=== PATIENT | male | born 1965 | race Caucasian/White ===

== ENCOUNTER 2018-02-23 19:22 | Emergency (ER) | payer OTHER ==
[~2018-02-23] VITALS: Ht 177.8 cm; Wt 95.3 kg
[~2018-02-23 19:22] MED LIST: ASPIRIN CHEW81 MG PO; FLECAINIDE ACE100 MG PO; METOPROLOL SUCC50 MG PO; OMEPRAZOLE20 M1 PO; SERTRALINE HCL50 MG PO; ZANTAC150 MG PO
--- OUTSIDE RECORDS SUMMARY | 2018-02-23 19:25 | XMS REPORT | Summary of Care ---
Author Author VALENTINE BROWN M.D. Organization Unknown Address [facility] Phone Unavailable Care Team Providers Care Entertainment Usher Name Role Phone VALENTINE BROWN M.D. Unavailable Unavailable SHELBIE MARTINEZ DO Unavailable Unavailable Unavailable Unavailable Functional Status Name Dates Details Functional status health issues are not documented Status: Name Dates Details Cognitive status health issues are not documented Status: Problems Name Dates Details Left-sided tinnitus (388.30, H93.12) Status: Active Medications Name Dates Details Metoprolol Tartrate 50 MG Oral Tablet Active PriLOSEC 20 MG CPDR * Refills: 0 Active Propafenone HCl TABS * Refills: 0 Active Allergies and Adverse Reactions Name Dates Details Typhoid Vaccines (Allergy) Status: Active Past Medical History Name Dates Details History of gastritis (V12.79, Z87.19) Status: Resolved History of hypertension (V12.59, Z86.79) Status: Resolved History of migraine headaches (V12.49, Z86.69) Status: Resolved Procedures Procedure Dates Details [O] Basic Audiometry Screen Date: 11-Aug-2017 History of Tonsillectomy Completed History of Lower leg fracture repair Completed Immunization Name Dates Details Immunizations not documented Family History Name Dates Details Family history of Allergy (995.3, T78.40XA) Comments: Family History Status: Active Family history of asthma (V17.5, Z82.5) Comments: Family History Status: Active Family history of cardiac disorder (V17.49, Z82.49) Comments: Family History Status: Active Social History Name Dates Details - Status: Name Dates Details Never smoker Vital Signs Date Test Result Details [id number] BP Systolic 126 mm[Hg] Status: BP Diastolic 86 mm[Hg] Status: Height 71 in Status: Weight 233.3125 lb Status: Body Mass Index Calculated 32.54 kg/m2 Status: Body Surface Area Calculated 2.25 m2 Status: Heart Rate 62 /min Status: Results Date Description Value Details Results not documented Plan of Care Name Dates Details Planned Observations Planned Goals not documented Interventions Provided Labs/Procedures/Imaging* [O] Basic Audiometry Screen; To Be Done: 11 Aug 2017 Plan* 1. Obtain ATR to assess hearing. White noise for the tinnitus Fu after testing. Instructions Name Dates Details Instructions not documented Encounters Appointment; AMBER MAGUIRE Encounter Diagnosis: Problem not documented On: 22-Aug-2016 14:15 Appointment; AMBER MAGUIRE Encounter Diagnosis: Problem not documented On: 17-Oct-2016 14:45 Appointment; VALENTINE BROWN M.D. Encounter Diagnosis: Problem not documented On: 11-Aug-2017 10:15
--- OUTSIDE RECORDS SUMMARY | 2018-02-23 19:25 | XMS REPORT | Clinical Summary ---
Author Author [facility] Organization [facility] Address Unknown Phone Unavailable Care Team Providers Care Early Morning Name Role Phone Owen Reyna PCP Allergies Comments Active Allergy Reactions Severity Noted Date Uxeaapq-Xqi-Lqk Reductase 04/02/2016 Inhibitors Typhoid Vaccines 04/02/2016 Medications End Date Status Medication Sig Dispensed Refills Start Date Active omeprazole (PRILOSEC) 20 Take 20 mg by 0 MG capsule mouth daily. Active Problems Problem Noted Date Arrhythmia 04/04/2016 Pulsatile tinnitus 04/04/2016 GERD (gastroesophageal reflux disease) 04/04/2016 Chest pain 04/02/2016 Bradycardia 04/02/2016 Hypertension Hyperlipidemia Hyperlipidemia Social History Date Tobacco Use Types Packs/Day Years Used Never Smoker Smokeless Tobacco: Never Used Alcohol Use Drinks/Week oz/Week Comments No Sex Assigned at Date Recorded Not on file Industry Job Start Date Occupation Not on file Not on file Not on file Travel End Travel History Travel Start No recent travel history available. Last Filed Vital Signs Not on file Plan of Treatment Not on file Results Not on fileafter 02/22/2017 Insurance Payer Benefit Subscriber ID Type Phone Address Plan / Group [employer] - [employer] CARE [employer] xxxxxxxxxxx HMO/POS HMO/POS/OP EN ACCESS (Home) [place] [address] Advance Directives For more information, please contact: [facility] [address] [place] [id number] Date Inactivated Comments Code Status Date Activated 04/06/2016 4:10 PM Full Code 04/02/2016 6:19 PM This code status was determined by: Patient
[2018-02-23 20:02] LABS: BASOPHILS # (AUTO) 0.1 (0.0-0.1); BASOPHILS % 0.8 % (0.0-1.0); EOSINOPHILS # (AUTO) 0.1 (0.0-0.4); EOSINOPHILS % 1.8 % (0.0-6.0); HEMATOCRIT 37.6 % (38.2-49.6); HEMOGLOBIN 12.3 g/dL (14.0-18.0); LYMPHOCYTES # (AUTO) 2.4 (1.0-3.2); LYMPHOCYTES % 38.1 % (18.0-39.1); MEAN CORPUSCULAR HEMOGLOBIN 27.8 pg (28-32); MEAN CORPUSCULAR HGB CONC 32.7 g/dL (31-35); MEAN CORPUSCULAR VOLUME 85.1 fL (81-99); MONOCYTES # (AUTO) 0.8 (0.2-0.8); MONOCYTES % 13.1 % (4.4-11.3); NEUTROPHILS # (AUTO) 2.9 (2.1-6.9); NEUTROPHILS % 45.9 % (38.7-80.0); PLATELET COUNT 247 x10e3/uL (140-360); RED BLOOD COUNT 4.42 x10e6/uL (4.3-5.7); RED CELL DISTRIBUTION WIDTH 15.9 % (11.7-14.4)
[2018-02-23 20:08] LABS: INR 0.84; PROTHROMBIN TIME 12.3 seconds (11.9-14.5)
[2018-02-23 20:09] LABS: PARTIAL THROMBOPLASTIN TIME 28.1 seconds (23.8-35.5)
[2018-02-23 20:20] LABS: ALANINE AMINOTRANSFERASE 31 IU/L (0-55); ALBUMIN 4.2 g/dL (3.5-5.0); ALBUMIN/GLOBULIN RATIO 1.5 (0.8-2.0); ALKALINE PHOSPHATASE 40 IU/L (40-150); ANION GAP 12.6 mmol/L (8-16); BLOOD UREA NITROGEN 16 mg/dL (7-26); BUN/CREATININE RATIO 16 (6-25); CALCIUM 9.5 mg/dL (8.4-10.2); CARBON DIOXIDE 24 mmol/L (22-29); CHLORIDE 103 mmol/L (98-107); CREATINE KINASE 219 IU/L (30-200); CREATININE, SERUM 1.01 mg/dL (0.72-1.25); EST GLOMERULAR FILTRATION RATE > 60 ML/MIN (60-); GLUCOSE 96 mg/dL (74-118); POTASSIUM 3.6 mmol/L (3.5-5.1); SODIUM 136 mmol/L (136-145)
--- NOTE | 2018-02-23 20:21 | Diagnostic Imaging Report ---
EXAMINATION: CHEST 2 VIEWS INDICATION: Chest pain COMPARISON: Report of chest x-ray performed 07/14/2016. Images are not available for comparison. FINDINGS: PA and lateral views TUBES and LINES: Loop recorder device in the anterior left chest wall. LUNGS: Lungs are well inflated. There is no evidence of pneumonia or pulmonary edema. PLEURA: No pleural effusion or pneumothorax. HEART AND MEDIASTINUM: The cardiomediastinal silhouette is unremarkable. BONES AND SOFT TISSUES: Mild degenerative changes of the spine. No focal osseous lesions. Soft tissues are unremarkable. UPPER ABDOMEN: No free air under the diaphragm. IMPRESSION: No acute thoracic abnormality. Signed by: Dr. Hardy Alonso MD on 02/23/2018 8:18 PM
--- NOTE | 2018-02-24 03:11 | NUR ---
TRANSFER INITIATED TO [facility] TO ADMIT TO DR. Andres MARTINEZ
--- NOTE | 2018-02-24 03:28 | NUR ---
PT ACCEPTED TO [facility], WAITING FOR BED
== END 2018-02-24 05:25 | disposition other institution (70) ==
LOC: ER 19:22
DX: R07.89 Other chest pain (principal); R06.00 Dyspnea, unspecified; E78.00 Pure hypercholesterolemia, unspecified; F32.9 Major depressive disorder, single episode, unspecified; K21.9 Gastro-esophageal reflux disease without esophagitis; Z87.891 Personal history of nicotine dependence
CPT/HCPCS: 36415; 71046; 80053; 82550; 82553; 84484; 85025; 85610; 85730; 93005; 99284

== ENCOUNTER → 2020-06-30 | Outpatient (CLI) | payer OTHER ==
[~2020-06-30] MED LIST changes: +IOPAMIDOL 370 MG/ML 200 ML INFUS..BTL INJ ONE; +SODIUM CHLORIDE 0.9% 50ML 50 ML ONE
[2020-06-30 15:45] LABS: BLOOD UREA NITROGEN 17 mg/dL (7-26); BUN/CREATININE RATIO 16 (6-25); CREATININE, SERUM 1.04 mg/dL (0.72-1.25); EST GLOMERULAR FILTRATION RATE > 60 ML/MIN (60-)
== END ==
LOC: CT 14:59
PROVIDERS: ATTEND Internal Medicine Interventional Cardiology
DX: R22.1 Localized swelling, mass and lump, neck (principal); R51.9 Headache, unspecified; E04.1 Nontoxic single thyroid nodule
CPT/HCPCS: 36415; 70498; 82565; 84520; Q9967